=== PATIENT | female | born 1980 | race Caucasian/White ===

== ENCOUNTER 2017-02-07 13:59 | Emergency (ER) | payer BC ==
[2017-02-07] MEDS ORDERED: NS 1,000 ML IV ONE ×2 (14:41→15:31)
--- NOTE | 2017-02-07 14:45 | EDPHY ---
General Time Seen by Provider: 02/07/17 14:27 Narrative: CHIEF COMPLAINT: Fever, back pain, urinary complaints HISTORY OF PRESENT ILLNESS: Patient has 3-5 days of urinary complaints and fever. The symptoms are mild at 1st. She thought she had a UTI, but did not seek care she thought it would go away. She has had intermittent fever that was subjective, and then took a temperature today and found it to be 101. She has bilateral flank pain. She has some nausea and vomiting. She has no upper abdominal pain. No bowel movement changes. No hematemesis. No trauma or injury. No gross hematuria. Symptoms feel like a UTI to her that have now worsened. No other associated complaints or modifying factors. PREVIOUS ABDOMINAL SURGERIES/DIAGNOSES: Pyelonephritis NPO: Morning REVIEW OF SYSTEMS: Ten systems reviewed and are negative unless otherwise noted in the HPI EXAMINATION: General Appearance: Alert, no distress Head: normocephalic, atraumatic Eyes: Pupils equal and round, no conjunctival pallor or injection. EOMs intact. ENT, Mouth: Mucous membranes moist. Uvula midline. No erythema or edema. Neck: Normal inspection, supple, non-tender. No meningismus. No nuchal rigidity. Respiratory: Lungs are clear to auscultation. No wheezing, rhonchi or crackles. Cardiovascular: Regular rate and rhythm. No murmur. Pulses intact distally. Gastrointestinal: Abdomen is soft. Bilateral flank tenderness. No point tenderness of the abdomen. No tympany. No rigidity. Nonacute abdomen. Back: non-tender, no bony abnormalities Neurological: A&O, nonfocal, normal gait Skin: Warm and dry, no rash Extremities: Nontender, no pedal edema Psychiatric: Mood and affect normal DIFFERENTIAL DIAGNOSES: Including but not limited to UTI, pyelonephritis, enteritis, pancreatitis, cholecystitis, cholelithiasis, viral illness MDM: 2:40 p.m. Patient has history examination consistent with pyelonephritis. She has reports of urinary tract infection that started several days ago but she did not seek treatment at that time. She now has flank pain, vomiting and fever. Abdominal exam is benign. She does have some flank tenderness but no acute abdomen. Vital signs are within normal limits. No tachycardia, tachypnea or fever. I have ordered IV fluid resuscitation, urinalysis and laboratory studies. She is hemodynamically stable in no acute distress. 3:30 p.m. UTI with leukocytosis. By examination history she has pyelonephritis. Given her level of pain in the flank all obtain a CT scan to rule out more significant pathology. She is comfortable with this plan. Will continue with the IV fluid resuscitation and start Rocephin IV 4:20 p.m. Notified by radiologist Dr. Hardin of CT scan findings. Findings suggest pyelonephritis. No other acute findings noted. I have re-examined the patient. She is feeling no better at this time. She would like to discuss with her boyfriend when he arrives with she is comfortable with being discharged home. I do feel she warrants inpatient admission with her leukocytosis, fever, significant flank pain and CT evidence of pyelonephritis. She remains hemodynamically stable in no acute distress. Mild tachycardia 101 beats per minute. No tachypnea. No hypotension. 5:[address] scan does not show any other findings. We had a very lengthy discussion regarding admission or outpatient care for this. She is mildly tachycardic but not tachypneic or febrile. We did start treatment with Rocephin. I did offer and recommend inpatient care for her given her malaise and vomiting throughout the day. She has received 2 L IV fluid and feels better enough that she has decided to try and go home. We discussed the risks, benefits alternatives and she is comfortable with soon the risk being discharged home. This includes worsening condition, sepsis and return to the emergency department. Treat her with Levaquin p. o. 1st dose here. Continue Levaquin at home along with pain medication and Zofran. She has strict return to the emergency department precautions for worsening pain, fever, difficulty urinating or inability to keep liquids or solids down. She is comfortable with this plan and assuming these risks and she is discharged home in stable condition. ED Precautions: Worsening pain. Fever. Bloody stools. Bloody emesis. Constipation or diarrhea. SUPERVISION: This patient was independently evaluated without direct examination by the attending physician. Case was discussed with attending physician. - History Smoking Status: Current some day smoker - Objective Vital Signs: Initial Vital Signs Temperature (C) 98.4 F 02/07/17 14:01 Heart Rate 90 02/07/17 14:01 Respiratory Rate 16 02/07/17 14:01 Blood Pressure 120/75 02/07/17 14:01 O2 Sat (%) 98 02/07/17 14:01 O2 Delivery Mode Room Air Allergies/Adverse Reactions: No Known Allergies Allergy (Unverified 02/07/17 14:03) Home Medications: Medication Instructions Recorded Ondansetron Odt [Zofran Odt 4 mg 4 mg PO Q6 PRN #12 tab 02/07/17 (*)] levOFLOXACIN [levAQUIN (*)] 750 mg PO DAILY #6 tab 02/07/17 oxyCODONE HCL/ACETAMINOPHEN 1 each PO Q4-6PRN PRN #15 tablet 02/07/17 [Percocet 5-325 mg Tablet] Laboratory Results: Laboratory Results 02/07/17 15:05 02/07/17 15:05 Microbiology Results: MICROBIOLOGY 02/07/17 14:49 Urine,Clean Catch Urine Culture - Preliminary Gram Neg 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 Medications Given: Discontinued Medications Sodium Chloride (Ns) 1,000 mls @ 0 mls/hr IV ONCE ONE PRN Reason: Wide Open Stop: 02/07/17 14:42 Last Admin: 02/07/17 15:15 Dose: 1,000 mls Ceftriaxone Sodium/Dextrose (Rocephin 1 Gm (Premix)) 50 mls @ 100 mls/hr IV EDNOW ONE PRN Reason: Protocol Stop: 02/07/17 15:39 Last Admin: 02/07/17 15:16 Dose: 50 mls Sodium Chloride (Ns) 1,000 mls @ 0 mls/hr IV ONCE ONE PRN Reason: Wide Open Stop: 02/07/17 15:32 Last Admin: 02/07/17 16:23 Dose: 1,000 mls Levofloxacin (Levaquin) 750 mg PO EDNOW ONE PRN Reason: Protocol Stop: 02/07/17 17:08 Last Admin: 02/07/17 17:14 Dose: 750 mg Departure - Departure Disposition: Home, Routine, Self-Care Clinical Impression: Pyelonephritis Condition: Good Instructions: Kidney Infection (ED) Additional Instructions: Increased fluid intake, Levaquin once daily starting tomorrow at home, Percocet and Zofran as needed. Return to the ER immediately for worsening pain, fever, inability to keep anything down by mouth. Referrals: NONE *PRIMARY CARE P,. [Primary Care Provider] - As per Instructions Delilah Smith MD [Medical Doctor] - As per Instructions Prescriptions: levOFLOXACIN [levAQUIN (*)] 750 mg PO DAILY #6 tab Ondansetron Odt [Zofran Odt 4 mg (*)] 4 mg PO Q6 PRN #12 tab PRN Reason: Nausea/Vomiting, Use 1st oxyCODONE HCL/ACETAMINOPHEN [Percocet 5-325 mg Tablet] 1 each PO Q4-6PRN PRN # 15 tablet PRN Reason: Pain, Breakthrough
[2017-02-07 14:49] LABS: COLOR YELLOW; LEUKOCYTE ESTERASE,URINE 2+ (NEGATIVE); NITRITE,URINE POSITIVE (NEGATIVE)
[2017-02-07 14:51] LABS: BACTERIA 2+ /hpf (NONE SEEN); WBC,URINE 25-50 /hpf (0-3)
[2017-02-07] MEDS ORDERED: ACETAMINOPHEN 500 MG TAB ONE (15:13)
[2017-02-07 15:19] LABS: % IMMATURE GRANULYOCYTES 0.4 % (0.0-1.1); ABSOLUTE IMMATURE GRANULOCYTES 0.07 10^3/uL (0.00-0.10); ADD DIFF? NO; ADD MORPH? NO; ADD SCAN? NO; ATYPICAL LYMPHOCYTE FLAG 20 (0-99); FRAGMENT RBC FLAG 0 (0-99); HEMATOCRIT 35.3 % (38.0-47.0); LEFT SHIFT FLG 10 (0-99); LIPEMIA HEMOLYSIS FLAG 90 (0-99); MEAN CELL VOLUME 88.3 fL (81.5-99.8); MEAN PLATELET VOLUME 10.1 fL (8.7-11.7); PLATELET CLUMPS FLAG 10 (0-99); PLATELET COUNT 291 10^3/uL (150-400)
[2017-02-07 15:34] LABS: ALANINE AMINOTRANSFERASE 49 IU/L (9-52); ALBUMIN 4.4 g/dL (3.5-5.0); ALKALINE PHOSPHATASE 98 IU/L (38-126); ANION GAP 15 mEq/L (8-16); ASPARTATE AMINOTRANSFERASE 23 IU/L (14-46); BILIRUBIN,TOTAL 0.7 mg/dL (0.1-1.4); BILIRUBIN-CONJUGATED 0.4 mg/dL (0.0-0.5); BILIRUBIN-UNCONJUGATED 0.3 mg/dL (0.0-1.1); CALCIUM 9.3 mg/dL (8.5-10.4); CARBON DIOXIDE 24 mEq/l (22-31); CHLORIDE 98 mEq/L (97-110); CREATININE 0.8 mg/dL (0.6-1.0); GLOMERULAR FILTRATION RATE > 60; GLUCOSE 104 mg/dL (70-100); POTASSIUM 4.1 mEq/L (3.5-5.2); SODIUM 137 mEq/L (134-144); TOTAL PROTEIN 8.1 g/dL (6.3-8.2)
[2017-02-07] MEDS ORDERED: IOPAMIDOL (ISOVUE-300) 100 ML BTL IV ONE (15:46)
[2017-02-07 17:15] VITALS: BP 110/67; PULSE 103; RESP 16; TEMP 99; O2SAT 96
== END 2017-02-07 17:23 | disposition home or self-care (01) ==
DX: N12 Tubulo-interstitial nephritis, not specified as acute or chronic (principal); B96.20 Unspecified Escherichia coli [E. coli] as the cause of diseases classified elsewhere; F17.200 Nicotine dependence, unspecified, uncomplicated
CPT/HCPCS: 96365; J0696; Q9967